=== PATIENT | male | born 1975 ===

== ENCOUNTER 2021-03-30 10:29 | Emergency (ER) | payer OTHER ==
[~2021-03-30] VITALS: Ht 182.9 cm; Wt 160.1 kg
[2021-03-30 10:39] VITALS: O2SAT 95
--- OUTSIDE RECORDS SUMMARY | 2021-03-30 12:18 | CCD | Continuity of Care Document ---
Author Author Lc LEWIS P.A. 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 Mucinex Multi-Symptom Cold Day/Night Pac k Misc Unknown Immunizations Description No Information Available Vital Signs Date Vital Result Comment 06/26/2018 3:30pm BP Systolic 130 mmHg BP Diastolic 80 mmHg Heart Rate 73 /min Respiratory Rate 20 /min O2 % BldC Oximetry 94 % Body Temperature 98.4 F Weight 315.00 lb Height 72 inches 6'0" BMI (Body Mass Index) 42.7 kg/m2 Pain Level 0 11/24/2017 6:15pm BP Systolic 137 mmHg BP Diastolic 95 mmHg Heart Rate 68 /min Respiratory Rate 19 /min O2 % BldC Oximetry 98 % Body Temperature 98.5 F Weight 332.00 lb Height 72 inches 6'0" BMI (Body Mass Index) 45.0 kg/m2 Pain Level 0 Results Description No Information Available Procedures Description No Information Available Medical Devices Description No Information Available Encounters Description No Information Available Assessments Description No Information Available Plan of Treatment No Information Available Functional Status Description No Information Available Mental Status Description No Information Available Referrals Description No Information Available
--- OUTSIDE RECORDS SUMMARY | 2021-03-30 12:18 | CCD ---
Author Author [facility] Organization [facility] Address Unknown Phone Unavailable Support Name Relationship Address Phone RE Next Of Kin Unknown Unavailable [facility] [place] [address] Unavailable JESSICA THOMAS Next Of Kin [id number] [facility] [address] [place] [address] Re-disclosure Warning The records that you are about to access may contain information from federally-assisted alcohol or drug abuse programs. If such information is present, then the following federally mandated warning applies: This information has been disclosed to you from records protected by federal confidentiality rules (42 CFR part 2). The federal rules prohibit you from making any further disclosure of this information unless further disclosure is expressly permitted by the written consent of the person to whom it pertains or as otherwise permitted by 42 CFR part 2. A general authorization for the release of medical or other information is NOT sufficient for this purpose. The Federal rules restrict any use of the information to criminally investigate or prosecute any alcohol or drug abuse patient.The records that you are about to access may contain highly sensitive health information, the redisclosure of which is protected by Article 27-F of the [facility] Public Health law. If you continue you may have access to information: Regarding HIV / AIDS; Provided by facilities licensed or operated by the [facility] Office of Mental Health; or Provided by the [facility] Office for People With Developmental Disabilities. If such information is present, then the following [facility] mandated warning applies: This information has been disclosed to you from confidential records which are protected by state law. State law prohibits you from making any further disclosure of this information without the specific written consent of the person to whom it pertains, or as otherwise permitted by law. Any unauthorized further disclosure in violation of state law may result in a fine or fpc sentence or both. A general authorization for the release of medical or other information is NOT sufficient authorization for further disc losure. Family History Family Member Name Family Member Gender Family Member Status Date o f Status Description Data Source(s) Unknown Unknown Problem [facility] ([facility]) Medications No Information Insurance Providers Payer name Policy type / Coverage type Policy ID Covered alliance party ID Covered alliance party's relationship to payton Policy Payton Plan Information [facility] [id number] [facility] [id number] DO NOT USE [id number] [facility] (O) [id number] Family Dependent [id number] [facility] (O) [id number] Self [id number] Problems, Conditions, and Diagnoses No Information Surgeries/Procedures No Information Results ID Date Data Source [id number] 03/24/2021 12:00:00 AM EST [facility] Name Value Range Interpretation Code Description Data Cherrie rce(s) Supporting Document(s) SARS-CoV2 Rapid Antigen Positive [facility] This lab was ordered by [facility] and reported by [facility]. Procedure Social History No Information
--- OUTSIDE RECORDS SUMMARY | 2021-03-30 12:18 | CCD | Continuity of Care Document ---
Author Author Lc LEWIS P.A. 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
[2021-03-30 13:54] VITALS: BP 142/86
== END 2021-03-30 13:54 | disposition home or self-care (01) ==
LOC: M ED 10:29
DX: U07.1 COVID-19 (principal); G47.33 Obstructive sleep apnea (adult) (pediatric)

== ENCOUNTER 2021-03-31 08:42 | Outpatient (CLI) | payer OTHER ==
--- NOTE | 2021-03-30 12:55 | CR.PDOC ---
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 The patient's tested positive for Covid 19 on 03/20/2021. The patient later tested positive on 03/24/2018. He states he has had increased sinus pressure, lethargy, sinus discharge green in color and achiness over the past several days but feels as though this is improving. He came to the ER today to be evaluated to see if he required any antibiotics for treatment. In the emergency room the patient was found to be stable on room air at rest and with exertion. The patient consented to monoclonal antibody treatment and form was signed. The patient denies chest pain, shortness of breath, fevers, chills, nausea, vomiting, abdominal pain, diarrhea. REVIEW OF SYSTEMS: CONSTITUTIONAL: Denies unexplained weight gain or weight loss, loss of appetite, fever, night sweats EYES: Denies eye drainage, eye pain, visual changes, dry/irritated eye EARS, NOSE, MOUTH, THROAT: Denies difficulty hearing, ringing in ears, mouth sores, loose teeth, sore throat, facial numbness NECK: Denies swollen glands CARDIOVASCULAR: Denies irregular heartbeat, racing heart, chest pains, swelling of feet or legs, pain in legs with walking RESPIRATORY: Denies shortness of breath, night sweats, wheezing, sputum production, oxygen at home, coughing up blood, cough lasting > 1 month GASTROINTESTINAL: Denies abdominal pain, constipation, bloody stool, diarrhea, heartburn, nausea, vomiting GENITOURINARY: Denies painful urination, bloody urine, frequent urination, urgency, leaking urine, impotence MUSCULOSKELETAL: Denies joint pain, muscle pain, leg swelling INTEGUMENTARY: Denies rash, itching, new skin lesion, change in existing skin lesion, hair loss or increase, breast changes. NEUROLOGICAL: Denies dizziness, difficulty walking, numbness or tingling PSYCHIATRIC: Denies depression, anxiety, recurrent bad thoughts, mood swings, hallucinations PAST MEDICAL HISTORY: RACHEL Obesity COVID 19 infection (dx 03/24/21) PAST SURGICAL HISTORY: Oral surgery Left knee surgery FAMILY HISTORY: No significant family history per patient SOCIAL HISTORY: Denies smoking, alcohol or drug use. ALLERGIES: Please see below. HOME MEDICATIONS: Please see below. PHYSICAL EXAMINATION: VS: Stable on RA CONSTITUTIONAL: No acute distress, resting comfortably, AAO x 3 EYES: PERRLA, EOM intact HENT, MOUTH: Normocephalic, atraumatic, moist mucous membranes NECK: SUPPLE, no JVD, no lymphadenopathy, no carotid bruit CV: Regular rate and rhythm, S1S2 normal, no murmurs/rubs/gallops RESPIRATORY: Clear to auscultation bilaterally, no rales/rhonchi/wheezes GI: obese abd, BS positive in 4 quadrants, soft, nontender, nondistended, no rebound or guarding, no organomegaly : Deferred MUSCULOSKELETAL: Normal ROM. No cyanosis, clubbing, swelling, joint deformity, extremity edema INTEGUMENTARY: Intact, no rashes, no lesions, no erythema NEUROLOGIC: Cranial Nerves II-XII are intact, no focal deficits PSYCHIATRIC: Mood and affect are normal LABORATORY DATA: Please see below IMAGING: None ASSESSMENT: 46 y/o M with PMH of COVID 19 infection consenting for monoclonal antibody infusion, date to be set up at discharge. PLAN: COVID 19 infection -Symptoms: sinus discharge, pressure, fatigue, headache -Stable on RA at rest and with activity -Consent for monoclonal antibody infusion done -Risks and benefits explained in detail -Infusion lab to call patient with date and time -If symptoms worsen patient should contact medical professional. Information given at discharge. Obesity, RACHEL -Manage per PCP DISPOSITION: D/c today to come back for monoclonal ab infusion Allergies Coded Allergies: No Known Allergies (Unverified , 03/30/21) Home Medications No Active Prescriptions or Reported Meds Asuncion South MD Mar 30, 2021 12:54
[~2021-03-31] VITALS: Ht 182.9 cm; Wt 154.5 kg
[~2021-03-31 08:42] MED LIST: ALBUTEROL 90 MCG/ACT 8GM HFA INHALER INH PRN; ALBUTEROL SULFATE 2.5 MG/0.5 ML INH NEB SOLN INH PRN; BAMLANIVIMAB 700 MG, ETESEVIMAB 1,400 MG in NS 250 ML IV ONE; CASIRIVIMAB (REGN10933) 600 MG, IMDEVIMAB (REGN10987) 600 MG in NS 250 ML IV ONE; EPINEPHrine INJ 1 MG/ML 1ML AMP IM PRN; NS 1,000 ML IV SCH; [UNRECOGNIZED DRUG - OTHER] IV ONE; diphenhydrAMINE 50MG/ML VIAL (J1200) IV PRN; methylPREDNISolone 125MG 2ML VIAL IV PRN
[2021-03-31 09:12] VITALS: BP 147/80
[2021-03-31 09:42] VITALS: BP 159/74
[2021-03-31 10:12] VITALS: BP 140/74
[2021-03-31 11:12] VITALS: BP 128/52
== END 2021-03-31 11:12 | disposition home or self-care (01) ==
LOC: M OPCLI4 08:42
PROVIDERS: ATTEND Internal Medicine
DX: U07.1 COVID-19 (principal)

== ENCOUNTER → 2021-05-12 | Outpatient (CLI) | payer OTHER ==
--- NOTE | 2021-05-12 17:59 | REP ---
INDICATION: RIGHT KNEE PAIN COMPARISON: None TECHNIQUE: Five views FINDINGS: There is tricompartmental marginal osteophytosis. There is patellofemoral joint space narrowing and medial compartmental narrowing. There is no significant subchondral sclerosis. There is no subchondral cyst formation. There is no acute fracture, dislocation, or subluxation. IMPRESSION: Chronic changes as described above. <Electronically signed by Kai Nascimento > 05/12/21 [id number]
== END ==
LOC: M RAD 17:16
PROVIDERS: ATTEND Physician Assistant Medical
DX: M25.761 Osteophyte, right knee (principal); M22.2X1 Patellofemoral disorders, right knee